=== PATIENT | female | born 1995 | race Two or more races ===

== ENCOUNTER 2019-01-16 20:09 | Emergency (ER) | payer MEDICAID ==
[~2019-01-16] VITALS: Ht 154.9 cm; Wt 61.0 kg
[2019-01-16 21:00] VITALS: BP 109/50
[2019-01-16] MEDS ORDERED: TETANUS, DIPHTHERIA, PERTUSSIS VAC/PF 0.5ML (>7YR OLD) IM ONE (22:30)
[2019-01-16] MEDS ORDERED: IBUPROFEN 600MG TABLET PO ONE (22:30)
[2019-01-16] MEDS ORDERED: BACITRACIN ZINC OINT UDPKT TOP ONE (22:30)
== END 2019-01-16 23:11 | disposition home or self-care (01) ==
LOC: ER 20:09
DX: S71.131A Puncture wound without foreign body, right thigh, initial encounter (principal); J45.909 Unspecified asthma, uncomplicated; W26.8XXA Contact with other sharp object(s), not elsewhere classified, initial encounter; Y93.89 Activity, other specified; Y92.89 Other specified places as the place of occurrence of the external cause; Y99.8 Other external cause status
CPT/HCPCS: 90471; 90715; 99283

== ENCOUNTER 2021-07-05 14:24 | Emergency (ER) | payer SELFPAY ==
[~2021-07-05] VITALS: Ht 152.4 cm; Wt 59.0 kg
[2021-07-05] MEDS ORDERED: IBUPROFEN 600MG TABLET PO ONE (15:45)
[2021-07-05] MEDS ORDERED: IBUP-2029 MT (16:39)
[2021-07-05 17:05] VITALS: BP 104/57
== END 2021-07-05 17:06 | disposition home or self-care (01) ==
LOC: ER 14:24
DX: S60.052A Contusion of left little finger without damage to nail, initial encounter (principal); X58.XXXA Exposure to other specified factors, initial encounter; Y93.89 Activity, other specified; Y92.89 Other specified places as the place of occurrence of the external cause; Y99.8 Other external cause status; J45.909 Unspecified asthma, uncomplicated
CPT/HCPCS: 29130; 73140; 81025; 99283